=== PATIENT | male | born 1995 | race African-American/Black ===

== ENCOUNTER 2016-07-05 05:45 | Emergency (ER) | payer OTHER ==
[~2016-07-05] VITALS: Ht 182.9 cm; Wt 68.0 kg
[2016-07-05 06:07] VITALS: BP 136/66
[2016-07-05] MEDS ORDERED: IBUP200T77 PO (06:45)
[2016-07-05] MEDS ORDERED: MORP15TA PO (06:45)
--- NOTE | 2016-07-05 06:45 | PHYS DOC ---
Past Medical History Past Medical History: No Pertinent History Past Surgical History: No Surgical History Alcohol Use: None Drug Use: None Adult General Chief Complaint Chief Complaint: ANKLE PROBLEM HPI HPI 18-year-old male who presents the emergency department after sustaining right ankle pain during an injury while playing basketball yesterday around 1700. He reports landing on his ankle incorrectly and twisting it. His pain is sharp worse with ambulation nonradiating moderate and worse at night. Review of systems is negative for chest pain shortness of breath abdominal pain hip pain or knee pain. All other review of systems is negative unless otherwise noted in history of present illness. Review of Systems Review of Systems SEE ABOVE. Allergies Allergies Allergies Coded Allergies Type Severity Reaction Last Updated Verified No Known Drug Allergies 07/05/16 No Physical Exam Physical Exam Constitutional: Well developed, well nourished, no acute distress, non-toxic appearance. HENT: Normocephalic, atraumatic, bilateral external ears normal, oropharynx moist, no oral exudates, nose normal. [] Eyes: PERRLA, EOMI, conjunctiva normal, no discharge. Neck: Normal range of motion, no tenderness, supple, no stridor. [] Cardiovascular:Heart rate regular rhythm, no murmur Lungs & Thorax: Bilateral breath sounds clear to auscultation [] Abdomen: Bowel sounds normal, soft, no tenderness, no masses, no pulsatile masses. Skin: Warm, dry, no erythema, no rash. [] Back: No tenderness, no CVA tenderness. Extremities: The patient's right foot is warm and well perfused with a palpable pulse. Normal neurovascular status present. 2 second cap refill. The patient has tenderness and a small amount of ecchymosis with swelling on the distal aspect of the lateral malleolus. Nontender on the medial side. No tenderness in the foot. Normal range of motion without tenderness of the knee proximally. Negative squeeze test. The remainder the patient's extremities are neurovascularly intact with normal range of motion. Neurologic: Alert and oriented X 3, normal motor function, normal sensory function, no focal deficits noted. [] Psychologic: Affect normal, judgement normal, mood normal. Current Patient Data Vital Signs Vital Signs Date Time Temp Pulse Resp B/P Pulse Ox O2 Delivery O2 Flow Rate FiO2 07/05/16 06:07 97.4 78 16 136/66 100 Room Air 97.4 EKG EKG [] Radiology/Procedures Radiology/Procedures [] Course & Med Decision Making Course & Med Decision Making Pertinent Labs and Imaging studies reviewed. (See chart for details) [] 20-year-old male presenting to the emergency department with right ankle pain after playing basketball. X-rays were unremarkable. The patient was prescribed oral pain medication given crutches as needed for assistance with walking and placed in a Gopi wrap for comfort. He was subsequently discharged home to follow up with his PCP over the next 2-3 days. Dragon Disclaimer Dragon Disclaimer This electronic medical record was generated, in whole or in part, using a voice recognition dictation system. Departure Departure Impression: Primary Impression: Ankle pain, right Disposition: HOME, SELF-CARE Condition: STABLE Referrals: NO PCP (PCP) ROSALES CREWS MD Patient Instructions: Ankle Sprain Additional Instructions: Thank you for allowing us to participate in your care today. Followup with your primary care physician in 3 days if your symptoms do not improve. If you do not have a primary care provider you can ask for a list of our primary care providers. Return to the emergency department you have any new or concerning findings. This should be evaluated by the primary care physician and any necessary consulting services for continued management within a few days after discharge. Return to emergency room if you have any new or concerning symptoms including but not limited to fever, chills, nausea, vomiting, intractable pain, any new rashes, chest pain, shortness of air, uncontrolled bleeding, difficulty breathing, and/or vision loss. You may have been prescribed medication that can change in your level of thinking and ability to operate machinery. These medications include hydrocodone and Ativan. Also, Benadryl has been known to do this as well. Be sure to check with your pharmacist and ask if the medications you've prescribed can affect your level of consciousness. I recommend not operating heavy machinery or driving while on medication such as these. Scripts Morphine Sulfate 15 Mg Tablet1 Tab PO PRN Q6-8HRS PRN SEVERE PAIN #8 TAB Prov:EMILY RUTHERFORD MD 07/05/16 Ibuprofen 200 Mg [id number] Mg PO PRN Q6HRS PRN INFLAMMATION #30 TAB Prov:EMILY RUTHERFORD MD 07/05/16 Problem Qualifiers Primary Impression: Ankle pain, right Chronicity: acute Qualified Code: M25.571 - Pain in right ankle and joints of right foot EMILY RUTHERFORD MD Jul 05, 2016 06:45
--- NOTE | 2016-07-05 07:12 | RAD ---
Right ankle, 3 views, 07/05/2016: History: Ankle pain No fracture or dislocation is identified. No significant arthritic change is seen. The soft tissues are unremarkable. IMPRESSION: No significant right ankle abnormality is detected.
== END 2016-07-05 07:17 | disposition home or self-care (01) ==
LOC: ER 05:46
DX: M25.571 Pain in right ankle and joints of right foot (principal); X50.0XXA Overexertion from strenuous movement or load, initial encounter; Y93.67 Activity, basketball; Y92.310 Basketball court as the place of occurrence of the external cause; Y99.8 Other external cause status
CPT/HCPCS: 73610; 99284

== ENCOUNTER 2019-01-22 09:19 | Emergency (ER) | payer SELFPAY ==
[~2019-01-22] VITALS: Ht 182.9 cm; Wt 73.9 kg
[~2019-01-22 09:19] MED LIST: IBUP200T77 PO; MORP15TA PO
[2019-01-22 10:53] VITALS: BP 146/79
--- NOTE | 2019-01-22 11:04 | PHYS DOC ---
Past Medical History Past Medical History: No Pertinent History Past Surgical History: No Surgical History Alcohol Use: None Drug Use: None Adult General Chief Complaint Chief Complaint: ANKLE PROBLEM HPI HPI Patient is a 23 year old male that presents after playing football yesterday. The patient states he was hit and after that his right ankle hurt. The patient states he's been unable to bear weight on his right leg since that time. He states when he is not putting weight on it is 5 out of 10 in severity and sharp. Review of Systems Review of Systems Constitutional: Denies fever or chills [] Eyes: Denies change in visual acuity, redness, or eye pain [] HENT: Denies nasal congestion or sore throat [] Respiratory: Denies cough or shortness of breath [] Cardiovascular: No additional information not addressed in HPI [] GI: Denies abdominal pain, nausea, vomiting, bloody stools or diarrhea [] : Denies dysuria or hematuria [] Musculoskeletal: Reports R leg pain. Integument: Denies rash or skin lesions [] Neurologic: Denies headache, focal weakness or sensory changes [] Endocrine: Denies polyuria or polydipsia [] Complete systems were reviewed and found to be within normal limits, except as documented in this note. Allergies Allergies Allergies Coded Allergies Type Severity Reaction Last Updated Verified No Known Drug Allergies 07/05/16 No Physical Exam Physical Exam Constitutional: Well developed, well nourished, no acute distress, non-toxic appearance. [] HENT: Normocephalic, atraumatic, bilateral external ears normal, oropharynx moist, no oral exudates, nose normal. [] Eyes: PERRLA, EOMI, conjunctiva normal, no discharge. [] Neck: Normal range of motion, no tenderness, supple, no stridor. [] Cardiovascular:Heart rate regular rhythm, no murmur [] Lungs & Thorax: Bilateral breath sounds clear to auscultation [] Abdomen: Bowel sounds normal, soft, no tenderness, no masses, no pulsatile masses. [] Skin: Warm, dry, no erythema, no rash. [] Back: No tenderness, no CVA tenderness. [] Extremities: Tenderness to lower extremity towards the distal tib/fib. Tenderness to tip of medial malleolus and posterior edge of tibia. Unable to bear weight. Neurologic: Alert and oriented X 3, normal motor function, normal sensory function, no focal deficits noted. [] Psychologic: Affect normal, judgement normal, mood normal. [] Current Patient Data Vital Signs Vital Signs Date Time Temp Pulse Resp B/P (MAP) Pulse Ox O2 Delivery O2 Flow Rate FiO2 01/22/19 10:53 97.8 73 16 146/79 (101) 99 Room Air 97.8 EKG EKG [] Radiology/Procedures Radiology/Procedures [][facility] [address] [place] [address] IMAGING REPORT Signed PATIENT: ALEXA BOSTONOUNT: [id number] : 1995 LOCATION: ER AGE: 23 SEX: M EXAM STATUS: REG ER ORD. PHYSICIAN: ANT GILBERT APRN REASON: trauma, tenderness PROCEDURE: TIBIA FIBULA RIGHT ANKLE RIGHT 3V, TIBIA FIBULA RIGHT History: Trauma. Tenderness. Technique: 2 views right tib-fib and 3 views right ankle. Comparison: None. Findings: Normal alignment. Symmetric ankle mortise. No fracture. Lateral ankle soft tissue swelling. Impression: 1. No acute osseous abnormality. 2. Lateral ankle soft tissue swelling. Electronically signed by: Nacho Kwan DO (01/22/2019 11:26 AM) [id number] DICTATED and SIGNED BY: NACHO KWAN DO DATE: 01/22/19 1126 Course & Med Decision Making Course & Med Decision Making Pertinent Labs and Imaging studies reviewed. (See chart for details) [place] ankle rules recommend imaging. Meets all 4 requirements. Imaging is negative. Will d/c home. Dragon Disclaimer Dragon Disclaimer This electronic medical record was generated, in whole or in part, using a voice recognition dictation system. Departure Departure Impression: Primary Impression: Ankle pain, right Disposition: 01 HOME, SELF-CARE Condition: STABLE Referrals: NO PCP (PCP) Patient Instructions: Elastic Bandage and RICE Additional Instructions: Thank you for visiting [facility]. We appreciate you trusting us with your care. If any additional problems come up don't hesitate to return to visit us. Please follow up with your primary care provider so they can plan additional care if needed and know about the problem that you had. If symptoms worsen come back to the Emergency Department. Any concerning symptoms that start such as chest pain, shortness of air, weakness or numbness on one side of the body, running high fevers or any other concerning symptoms return to the ER. Problem Qualifiers Primary Impression: Ankle pain, right Chronicity: acute Qualified Codes: M25.571 - Pain in right ankle and joints of right foot ANT GILBERT APRN Jan 22, 2019 11:04
--- NOTE | 2019-01-22 11:29 | RAD ---
ANKLE RIGHT 3V, TIBIA FIBULA RIGHT History: Trauma. Tenderness. Technique: 2 views right tib-fib and 3 views right ankle. Comparison: None. Findings: Normal alignment. Symmetric ankle mortise. No fracture. Lateral ankle soft tissue swelling. Impression: 1. No acute osseous abnormality. 2. Lateral ankle soft tissue swelling. Electronically signed by: Hal Perez DO (01/22/2019 11:26 AM) [id number]
== END 2019-01-22 11:48 | disposition home or self-care (01) ==
LOC: ER 09:19
DX: M25.571 Pain in right ankle and joints of right foot (principal); G89.11 Acute pain due to trauma; W22.8XXA Striking against or struck by other objects, initial encounter; Y93.61 Activity, american tackle football; Y92.89 Other specified places as the place of occurrence of the external cause; Y99.8 Other external cause status
CPT/HCPCS: 73590; 73610; 99284